=== PATIENT | male | born 1980 | race Caucasian/White ===

== ENCOUNTER 2023-12-28 13:25 | Emergency (ER) | payer OTHER ==
[~2023-12-28] VITALS: Ht 182.9 cm; Wt 90.7 kg
[2023-12-28] MEDS ORDERED: HYDR-4303 PO (14:38)
[2023-12-28 15:01] VITALS: BP 140/93; TEMP 98.6; O2SAT 99
== END 2023-12-28 15:01 | disposition home or self-care (01) ==
LOC: ER 13:34
DX: S42.291A Other displaced fracture of upper end of right humerus, initial encounter for closed fracture (principal); E11.9 Type 2 diabetes mellitus without complications; W18.39XA Other fall on same level, initial encounter; Y93.89 Activity, other specified; Y92.89 Other specified places as the place of occurrence of the external cause; Y99.8 Other external cause status
CPT/HCPCS: 71100-TC; 73030-TC